=== PATIENT | female | born 1935 | race American Indian/Alaskan Native ===

== ENCOUNTER 2017-09-27 09:33 | Observation (INO) | payer MEDICAID, MEDICARE, OTHER ==
[2017-09-27 09:38] VITALS: BMI 30.1
[2017-09-27 10:28] LABS: EOS % 0.3 % (1.5-5.0); GRAN # 8.39 (1.4-6.5); GRAN % 85.8 % (50.0-68.0); LYMPH # 0.9 (1.2-3.4); LYMPH % 8.9 % (22.0-35.0); MEAN CELL VOLUME 91.5 fl (80.0-105.0); MEAN CORPUSCULAR HEMOGLOBIN 29.8 pg (25.0-35.0); MEAN CORPUSCULAR HGB CONC 32.6 g/dl (31.0-37.0); MEAN PLATELET VOLUME 10.3 fl (7.0-11.0); MONO # 0.5 (0.1-0.6); RBC 4.36 10^6/uL (3.5-6.1); RED CELL DISTRIBUTION WIDTH 15.1 % (11.5-14.5); WHITE BLOOD COUNT 9.8 10^3/ul (4.5-11.0)
--- NOTE | 2017-09-27 10:50 | RAD ---
PROCEDURE: CHEST RADIOGRAPH, 1 VIEW HISTORY: syncope COMPARISON: None available. FINDINGS: LUNGS: Clear. PLEURA: No pneumothorax or pleural fluid seen. CARDIOVASCULAR: Normal. OSSEOUS STRUCTURES: No significant abnormalities. VISUALIZED UPPER ABDOMEN: Normal. OTHER FINDINGS: None. IMPRESSION: No active disease.
--- NOTE | 2017-09-27 10:56 | CT ---
PROCEDURE: CT HEAD WITHOUT CONTRAST. HISTORY: fall, head trauma COMPARISON: None available. TECHNIQUE: Axial computed tomography images were obtained through the head/brain without intravenous contrast. Radiation dose: Total exam DLP = 637 mGy-cm. This CT exam was performed using one or more of the following dose reduction techniques: Automated exposure control, adjustment of the mA and/or kV according to patient size, and/or use of iterative reconstruction technique. FINDINGS: HEMORRHAGE: No intracranial hemorrhage. BRAIN: No mass effect or edema. No atrophy or chronic microvascular ischemic changes. VENTRICLES: Unremarkable. No hydrocephalus. CALVARIUM: Unremarkable. PARANASAL SINUSES: Mucous retention cyst in the sphenoid sinus on the right side MASTOID AIR CELLS: Unremarkable as visualized. No inflammatory changes. OTHER FINDINGS: None. IMPRESSION: No acute intracranial findings
--- NOTE | 2017-09-27 11:18 | ED PDOC ---
Arrival/HPI - General Chief Complaint: Syncope Time Seen by Provider: 09/27/17 09:49 Historian: Patient - History of Present Illness Narrative History of Present Illness (Text): 09/27/17 11:15 82 year old female, with no significant past medical history, who presents to the emergency department s/p trauma. Patient woke up normal, ambulated to the bathroom, urinated, and then fell. Patient's daughter heard a thump and found the patient on the floor vomiting. Patient's daughter notes the patient seemed "out of it' and may have lost consciousness. Patient feels fine now with no recollection of the fall. Patient denies any fever, chills, chest pain, shortness of breath, nausea, vomiting, diarrhea, back pain, neck pain, headache , dizziness. She has no complaints while in ED 09/27/17 12:44 Symptom Onset: Sudden Symptom Course: Unchanged Activities at Onset: Light Context: Home Past Medical History - Provider Review Nursing Documentation Reviewed: Yes - Infectious Disease Hx of Infectious Diseases: None - Reproductive Menopause: Yes - Cardiac Hx Cardiac Disorders: Yes Hx Hypertension: Yes - Pulmonary Hx Respiratory Disorders: No - Neurological Hx Neurological Disorder: No - HEENT Hx HEENT Disorder: No - Renal Hx Renal Disorder: No - Endocrine/Metabolic Hx Endocrine Disorders: Yes Hx Diabetes Mellitus Type 2: Yes - Hematological/Oncological Hx Blood Disorders: Yes Hx Blood Transfusions: Yes - Integumentary Hx Dermatological Disorder: No - Musculoskeletal/Rheumatological Hx Musculoskeletal Disorders: Yes - Gastrointestinal Hx Gastrointestinal Disorders: No - Genitourinary/Gynecological Hx Genitourinary Disorders: No - Psychiatric Hx Psychophysiologic Disorder: No Hx Depression: No Hx Emotional Abuse: No Hx Substance Use: No - Surgical History Hx Cardiac Catheterization: Yes Hx Coronary Stent: Yes Hx Hysterectomy: Yes - Anesthesia Hx Anesthesia Reactions: No Hx Malignant Hyperthermia: No - Suicidal Assessment Feels Threatened In Home Enviroment: No Family/Social History - Physician Review Nursing Documentation Reviewed: Yes Family/Social History: Unknown Family HX Smoking Status: Never Smoked Hx Alcohol Use: No (STOPPED 20 YRS AGO) Hx Substance Use: No Allergies/Home Meds Allergies/Adverse Reactions: Allergies No Known Allergies Allergy (Verified 06/18/15 16:07) Home Medications: Home Meds Medication Instructions Recorded Confirmed Glipizide 10 mg PO QPM 03/11/15 09/27/17 Linagliptin [Tradjenta] 5 mg PO QAM 03/11/15 09/27/17 Valsartan/Hydrochlorothiazide 1 tab PO QAM 03/11/15 09/27/17 [Valsartan-Hctz 160-12.5 mg Tab] Aspirin [Aspirin Chewable] 81 mg PO DAILY 06/18/15 09/27/17 Atorvastatin [Lipitor] 20 mg PO DAILY 06/18/15 09/27/17 Review of Systems - Review of Systems Constitutional: absent: Weight Change, Fevers, Night Sweats Eyes: absent: Vision Changes ENT: absent: Hearing Changes Respiratory: absent: SOB, Cough, Sputum, Wheezing Cardiovascular: absent: Chest Pain, Other Gastrointestinal: absent: Abdominal Pain, Diarrhea, Nausea, Vomiting Genitourinary Female: absent: Dysuria, Frequency, Hematuria, Urine Output Changes Musculoskeletal: absent: Back Pain, Neck Pain Skin: Other (swelling to L forehead) Neurological: Other (?syncope vs fall). absent: Headache, Dizziness, Focal Weakness Psychiatric: absent: Anxiety, Depression Physical Exam Vital Signs Reviewed: Yes Vital Signs Temp Pulse Resp BP Pulse Ox 09/27/17 11:33 87 18 126/66 100 09/27/17 09:33 98.8 F 106 H 15 113/63 98 Temperature: Afebrile Blood Pressure: Normal Pulse: Tachycardic Respiratory Rate: Normal Appearance: Positive for: Well-Appearing, Non-Toxic, Comfortable Pain Distress: None Mental Status: Positive for: Alert and Oriented X 3 Finger Stick Blood Glucose: 168 - Systems Exam Head: Present: Atraumatic, Normocephalic, Swelling (L temporal area swelling) Pupils: Present: PERRL Extroacular Muscles: Present: EOMI Conjunctiva: Present: Normal Mouth: Present: Moist Mucous Membranes Neck: Present: Normal Range of Motion. No: Meningeal Signs, MIDLINE TENDERNESS , Paraspinal Tenderness Respiratory/Chest: Present: Clear to Auscultation, Good Air Exchange. No: Respiratory Distress, Accessory Muscle Use Cardiovascular: Present: Regular Rate and Rhythm, Normal S1, S2. No: Murmurs Abdomen: No: Tenderness, Distention, Peritoneal Signs Back: Present: Normal Inspection. No: CVA Tenderness, Midline Tenderness, Paraspinal Tenderness Upper Extremity: Present: Normal Inspection. No: Cyanosis, Edema Lower Extremity: Present: Normal Inspection. No: Edema, CALF TENDERNESS Neurological: Present: GCS=15, CN II-XII Intact, Speech Normal, Normal Sensory Function, Normal Cerebellar Funct, Gait Normal Skin: Present: Warm, Dry, Normal Color. No: Rashes Psychiatric: Present: Alert, Oriented x 3, Normal Insight, Normal Concentration Medical Decision Making ED Course and Treatment: 09/27/17 11:19 Impression: 82 year old female presents to the emergency department s/p trauma. Likely syncope as patient has no recollection of fall and per family had LOC Plan: -- EKG -- Chest X-ray -- CT Head -- Labs -- Lipase -- Magnesium -- Phosphorous -- Troponin -- Urinalysis -- Reassess and disposition Progress Notes: CT Head reviewed, shows: HEMORRHAGE: No intracranial hemorrhage. BRAIN: No mass effect or edema. No atrophy or chronic microvascular ischemic changes. VENTRICLES: Unremarkable. No hydrocephalus. CALVARIUM: Unremarkable. PARANASAL SINUSES: Mucous retention cyst in the sphenoid sinus on the right side MASTOID AIR CELLS: Unremarkable as visualized. No inflammatory changes. OTHER FINDINGS: None. IMPRESSION: No acute intracranial findings Chest X-ray reviewed, shows: LUNGS: Clear. PLEURA: No pneumothorax or pleural fluid seen. CARDIOVASCULAR: Normal. OSSEOUS STRUCTURES: No significant abnormalities. VISUALIZED UPPER ABDOMEN: Normal. OTHER FINDINGS: None. IMPRESSION: No active disease. 09/27/17 12:35 Chest X-ray reviewed, shows: LUNGS: Clear. PLEURA: No pneumothorax or pleural fluid seen. CARDIOVASCULAR: Normal. OSSEOUS STRUCTURES: No significant abnormalities. VISUALIZED UPPER ABDOMEN: Normal. OTHER FINDINGS: None. IMPRESSION: No active disease. 09/27/17 12:43 Labs reviewed. Trop x 1 negative. EKG shows sinus tachycardia at 104bpm with pacs, RBBB, L anterior fascicular block, LVH, unchanged from prior on 06/2015. Dr. garcia evaluated at bedside. - Lab Interpretations Lab Results: 09/27/17 10:25 09/27/17 11:20 Lab Results 09/27/17 11:20: Sodium 139, Potassium 4.6, Chloride 102, Carbon Dioxide 27, Anion Gap 15, BUN 20, Creatinine 1.1, Est GFR ( Amer) 58, Est GFR (Non- Af Amer) 48, Random Glucose 195 H, Calcium 9.4, Phosphorus 2.8, Magnesium 2.0, Total Bilirubin 0.7, AST 38 H, ALT 23, Alkaline Phosphatase 81, Total Creatine Kinase 70, Troponin I < 0.01, Total Protein 7.7, Albumin 4.1, Globulin 3.6, Albumin/Globulin Ratio 1.2, Lipase 58 09/27/17 10:25: WBC 9.8, RBC 4.36, Hgb 13.0, Hct 39.9, MCV 91.5, MCH 29.8, MCHC 32.6, RDW 15.1 H, Plt Count 195, MPV 10.3, Gran % 85.8 H, Lymph % (Auto) 8.9 L, [place] % (Auto) 5.0, Eos % (Auto) 0.3 L, Baso % (Auto) 0.0, Gran # 8.39 H, Lymph # (Auto) 0.9 L, [place] # (Auto) 0.5, Eos # (Auto) 0.0, Baso # (Auto) 0.00 - RAD Interpretation Radiology Orders: 09/27/17 09:53 HEAD W/O CONTRAST [CT] Stat 09/27/17 09:56 CHEST ONE VIEW [RAD] Stat - Scribe Statement The provider has reviewed the documentation as recorded by the Scribe Madison Villar All medical record entries made by the Scribe were at my direction and personally dictated by me. I have reviewed the chart and agree that the record accurately reflects my personal performance of the history, physical exam, medical decision making, and the department course for this patient. I have also personally directed, reviewed, and agree with the discharge instructions and disposition. Disposition/Present on Arrival - Present on Arrival Any Indicators Present on Arrival: No History of DVT/PE: No History of Uncontrolled Diabetes: No Urinary Catheter: No History of Decub. Ulcer: No History Surgical Site Infection Following: None - Disposition Have Diagnosis and Disposition been Completed?: Yes Diagnosis: Syncope Disposition: HOSPITALIZED Disposition Time: 10:15 Patient Plan: Observation Condition: FAIR
[2017-09-27 11:35] LABS: ALB/GLOB RATIO 1.2 (1.1-1.8); ALBUMIN 4.1 g/dL (3.0-4.8); ALT/SGPT 23 U/L (7-56); AST/SGOT 38 U/L (14-36); BLOOD UREA NITROGEN 20 mg/dL (7-21); CALCIUM 9.4 mg/dL (8.4-10.5); GFR AFRICAN-AMERICAN 58; GFR NON-AFRICAN AMERICAN 48; LIPASE 58 U/L (23-300)
[2017-09-27 11:46] LABS: TROPONIN I < 0.01 ng/mL
[2017-09-27 13:30] LABS: URINE BILIRUBIN NEGATIVE (NEGATIVE); URINE BLOOD NEGATIVE (NEGATIVE); URINE GLUCOSE (UA) NEGATIVE (NEGATIVE); URINE LEUKOCYTE ESTERASE NEGATIVE Leu/uL (NEGATIVE); URINE PROTEIN NEGATIVE mg/dL (<30 mg/dL); URINE UROBILINOGEN 0.2 E.U./dL (<1 E.U./dL)
[2017-09-27 13:31] LABS: URINE APPEARANCE CLEAR (CLEAR); URINE COLOR YELLOW (YELLOW)
--- NOTE | 2017-09-27 14:23 | CARD ---
APPROVED REPORT EKG Measurement Heart [id number] <Conclusion> Sinus tachycardia with premature atrial complexes Right bundle branch block Left anterior fascicular block Bifascicular block Voltage criteria for left ventricular hypertrophy Abnormal ECG
[2017-09-27] MEDS ORDERED: Sodium Chloride 0.45% 1,000 ML IV SCH (19:00)
--- NOTE | 2017-09-27 20:10 | US ---
PROCEDURE: Bilateral carotid artery duplex ultrasound HISTORY: Carotid stenosis TIA PHYSICIAN(S): Roderick Chambers MD. TECHNIQUE: Duplex sonography and color-flow Doppler were used to evaluate the carotid bifurcations and limited segments of the vertebral arteries bilaterally. FINDINGS: There is mild smooth diffuse plaque noted at the carotid bifurcations bilaterally. The peak systolic velocity in the proximal right internal carotid artery is 70 cm/sec. This corresponds to a 20 to 39% proximal right ICA stenosis. Normal systolic velocities are noted in the proximal right external carotid artery. There is antegrade flow in the dominant right vertebral artery. The peak systolic velocity in the proximal left internal carotid artery is 88 cm/sec. This corresponds to a 20 to 39% proximal left ICA stenosis. Normal systolic velocities are noted in the proximal left external carotid artery. There is antegrade flow in the small left vertebral artery. IMPRESSION: 1. Bilateral 20-39% proximal ICA stenoses. 2. Antegrade flow in both vertebral arteries.
[2017-09-27] MEDS: Insulin Reg-MEDIUM-Coverage SC SCH (21:56)
--- NOTE | 2017-09-27 23:57 | CP.PCM.PN ---
Subjective - Date & Time of Evaluation Date of Evaluation: 09/27/17 Time of Evaluation: 22:50 - Subjective Subjective: Pt seen at the request of her RN for her c/o heartburn since early this AM. She states that she had a heartburn followed by vomiting earlier today.The vomiting is controlled by Zofran,however she still continues to have the heartburn intermittently.She also feels a sour taste in her mouth and is belching at times. Denies c/o SOB,chest pain,pain in her back,neck or arms.No c/o calf pain. VS are stable. PMH: CAD,has one stent,DM. Objective - Vital Signs/Intake and Output Vital Signs (last 24 hours): Temp Pulse Resp BP Pulse Ox 99.8 F H 106 H 18 134/82 96 09/27/17 21:00 09/27/17 21:00 09/27/17 21:00 09/27/17 21:00 09/27/17 18:07 - Medications Medications: Current Medications Aspirin (Aspirin Chewable) 81 mg PO DAILY [facility] Atorvastatin Calcium (Lipitor) 20 mg PO DIN SHAYY Glipizide (Glucotrol) 10 mg PO QPM [facility] Hydrochlorothiazide (Microzide) 12.5 mg PO DAILY [facility] Sodium Chloride (Sodium Chloride 0.45%) 1,000 mls @ 40 mls/hr IV .Q24H [facility] Last Admin: 09/27/17 20:35 Dose: 40 mls/hr Insulin Human Regular (Humulin R Med) 0 units SC ACHS SHAYY PRN Reason: Protocol Last Admin: 09/27/17 21:56 Dose: Not Given Losartan Potassium (Cozaar) 100 mg PO DAILY [facility] Metoprolol Succinate (Toprol Xl) 25 mg PO DAILY [facility] Non-Formulary Medication (Linagliptin [Tradjenta]) 5 mg PO QAM [facility] Ondansetron HCl (Zofran Inj) 4 mg IVP Q6H PRN PRN Reason: Nausea/Vomiting - Constitutional Appears: No Acute Distress - Head Exam Head Exam: ATRAUMATIC, NORMAL INSPECTION, NORMOCEPHALIC - Eye Exam Eye Exam: PERRL - ENT Exam ENT Exam: Mucous Membranes Moist - Neck Exam Neck Exam: Full ROM, Normal Inspection - Respiratory Exam Respiratory Exam: Clear to Ausculation Bilateral - Cardiovascular Exam Cardiovascular Exam: REGULAR RHYTHM, +S1, +S2. absent: JVD - GI/Abdominal Exam GI & Abdominal Exam: Soft, Normal Bowel Sounds. absent: Tenderness - Extremities Exam Extremities Exam: Normal Inspection. absent: Calf Tenderness, Pedal Edema - Neurological Exam Neurological Exam: Alert, Awake, Oriented x3 Additional comments: moves all 4 extremities - Psychiatric Exam Psychiatric exam: Normal Affect - Skin Skin Exam: Dry, Warm Assessment and Plan - Assessment and Plan (Free Text) Assessment: Heartburn Plan: Ekg was done and compared with prior EKG from this AM.It shows NSR,RBBB,LAHB,LVH (same findings as before). Troponin 1 ordered stat,then in AM. Protonix ordered stat,then daily. Suggest GI consult.
--- NOTE | 2017-09-28 02:49 | HP ---
HISTORY OF PRESENT ILLNESS: I was called down to the emergency room to see Maricruz. She is not doing well. She is an 82-year-old -[place] female with a past medical history of woke up normal, ambulated to the bathroom, urinated and fell. The daughter heard the thump. Found her on the floor, vomiting. Seemed out of it. May have loss of consciousness. Feels fine now in the emergency room, doing better. PAST MEDICAL HISTORY: She has a history of hypertension, menopause, diabetes. She has had blood transfusions in the past, arthritis, coronary stents, hysterectomy, CAD. FAMILY HISTORY: Unknown family history. SOCIAL HISTORY: Never smoked. Quit alcohol 20 years ago. No substance abuse. ALLERGIES: NO KNOWN DRUG ALLERGIES. MEDICATIONS: She is on glipizide, Tradjenta, valsartan, hydrochlorothiazide, chewable aspirin and Lipitor. REVIEW OF SYSTEMS: No weight change. No fever. No night sweats. No vision changes. No hearing changes. No shortness of breath, cough, sputum or wheezing. No chest pain. No palpitations. She had little bit of nauseous for a little while and threw up one, but no abdominal pain, no diarrhea or discomfort. No problems urinating. No back pain or neck pain. There is some swelling to the left forehead from where she fell. She had a syncopal episode and fall. No headache or dizziness at this time. No focal weakness. No anxiety or depression. PHYSICAL EXAMINATION: VITAL SIGNS: She has 98.8 temp, 106 pulse, 15 respiratory rate, 113/63 blood pressure, 98% O2 sat on room air. GENERAL: She is well appearing, nontoxic, comfortable right now in the ER. She is alert and oriented x3. Blood sugar was 168. HEENT: Head is traumatic with a left temporal area swelling with normocephalic. Extraocular muscles are intact. Pupils equal, reactive to light. Throat is moist. Tongue midline. NECK: Good range of motion. HEART: Regular rate. Normal S1 and S2. LUNGS: Clear to auscultation with fair air exchange. No wheezes, rhonchi or rales. ABDOMEN: Soft, nontender. Positive bowel sounds. No guarding. No rebound. No CVA tenderness. EXTREMITIES: Have no edema. She can move all 4 extremities. SKIN: For the most part is intact. No apparent rashes or ulcers. NEUROLOGIC: GCS is 15. Cranial nerves II through XII grossly intact. Speech is normal. She feels back to normal. Alert and oriented x3. LYMPHATICS: Thyroid midline. No palpable appreciable lymphadenopathy. LABORATORY DATA: She had a bunch of tests done. Head CT was okay. Chest x-ray was okay. She had labs. Urine was clean. 139 sodium, potassium 4.6, BUN 20, creatinine 1.1, GFR is 48, sugar is 195, calcium is 9.4, phosphorous 2.8, magnesium 2, total bili is 0.7, AST is 38, ALT is 23, alk phos is 81, Troponin I is less than 0.01, total protein 7.7, albumin is 4.1. White count is 9.8, hemoglobin 13, hematocrit 39.9, platelets of 195. IMPRESSION: She will be put back on her regular medications. She will be on an insulin coverage. She will be on some IV fluids. We are checking carotid Dopplers, echo, EEG, diet. She will have consults with Cardiology and Pulmonary. She will have labs tomorrow morning. She will be here on observation for a syncopal episode with head trauma. Erasto Keys DO MTDD
--- NOTE | 2017-09-28 06:03 | CON ---
DATE: HISTORY OF PRESENT ILLNESS: This is an 82-year-old female with no significant past medical history, came to the emergency room because patient fell in the bathroom and daughter heard the thump and found her on the floor, and she was vomiting also; brought to the emergency room, not sure whether lost consciousness or not, and no tongue bite. ALLERGIES: NO KNOWN DRUG ALLERGY. SOCIAL HISTORY: Does not smoke. Does not drink. PHYSICAL EXAMINATION: VITAL SIGNS: Blood pressure 130/63. HEENT: Normocephalic and atraumatic. NECK: Supple. NEUROLOGIC: Left facial trauma was noted, and pupils reactive. EOM intact. Visual werner full. No facial asymmetry. Tongue midline. Motor: Moves all the extremities equally. Tone normal. Deep tendon reflexes 1+. Both plantars are downgoing. Sensory appears intact. Cerebellar, gait deferred. IMPRESSION: Syncope, less likely seizure. CAT scan of the head was done, which was normal, and workup in progress. We will do EEG and followup of the results. Salinas Walker MD
[2017-09-28 06:22] VITALS: O2SAT 98
[2017-09-28 07:15] LABS: MEAN CELL VOLUME 91.5 fl (80.0-105.0); MEAN CORPUSCULAR HEMOGLOBIN 29.2 pg (25.0-35.0); MEAN CORPUSCULAR HGB CONC 31.9 g/dl (31.0-37.0); MEAN PLATELET VOLUME 10.6 fl (7.0-11.0); RBC 4.11 10^6/uL (3.5-6.1); RED CELL DISTRIBUTION WIDTH 15.3 % (11.5-14.5); WHITE BLOOD COUNT 6.6 10^3/ul (4.5-11.0)
[2017-09-28 07:30] LABS: TROPONIN I < 0.01 ng/mL
[2017-09-28 07:44] LABS: ALBUMIN 3.6 g/dL (3.0-4.8); ALT/SGPT 30 U/L (7-56); AST/SGOT 33 U/L (14-36); BLOOD UREA NITROGEN 17 mg/dL (7-21); CALCIUM 8.3 mg/dL (8.4-10.5); GFR AFRICAN-AMERICAN > 60; GFR NON-AFRICAN AMERICAN 53
[2017-09-28] MEDS: Insulin Reg-MEDIUM-Coverage SC SCH ×3 (08:30→16:51)
[2017-09-28] MEDS ORDERED: Metoprolol Succinate 25 mg XL Tab PO SCH (10:00)
--- NOTE | 2017-09-28 15:46 | CARD ---
APPROVED REPORT EXAM: Two-dimensional and M-mode echocardiogram with Doppler and color Doppler. INDICATION Syncope 2D DIMENSIONS Left Atrium (2D)3.3 (1.6-4.0cm)IVSd1.2 (0.7-1.1cm) LVDd3.7 (3.9-5.9cm)PWd1.3 (0.7-1.1cm) LVDs2.4 (2.5-4.0cm)FS (%) 35.1 % LVEF (%)65.2 (>50%) M-Mode DIMENSIONS Aortic Root2.90 (2.2-3.7cm)Aortic Cusp Exc.1.70 (1.5-2.0cm) Aortic Valve AoV Peak Wfdndekh660.0cm/Hemanth Peak GR.7mmHg Mitral Valve MV E Lmwndjnz50.8cm/sMV A Zlczdzbe74.1cm/sE/A ratio0.8 TDI E/Lateral E'0.0E/Medial E'0.0 Tricuspid Valve TR Peak [id number]/sRAP [id number] Peak Gr.20mmHg [id number] LEFT VENTRICLE The left ventricle is normal size. There is normal left ventricular wall thickness. The left ventricular function is normal. The left ventricular ejection fraction is within the normal range. There is normal LV segmental wall motion. Transmitral Doppler flow pattern is Grade I-abnormal relaxation pattern. RIGHT VENTRICLE The right ventricle is normal size. There is normal right ventricular wall thickness. The right ventricular systolic function is normal. ATRIA The left atrium size is normal. The right atrium size is normal. AORTIC VALVE The aortic valve is not well visualized. No aortic regurgitation is present. There is no aortic valvular stenosis. MITRAL VALVE The mitral valve is normal in structure. There is no mitral valve regurgitation noted. TRICUSPID VALVE There is trace tricuspid regurgitation. GREAT VESSELS The aortic root is normal in size. PERICARDIAL EFFUSION There is no pericardial effusion. <Conclusion> The left ventricle is normal size. There is normal left ventricular wall thickness. The left ventricular function is normal. The left ventricular ejection fraction is within the normal range. There is normal LV segmental wall motion. Transmitral Doppler flow pattern is Grade I-abnormal relaxation pattern.
--- NOTE | 2017-09-28 16:52 | CARD ---
APPROVED REPORT EKG Measurement Heart [id number] <Conclusion> Normal sinus rhythm Right bundle branch block Left anterior fascicular block Bifascicular block Voltage criteria for left ventricular hypertrophy Abnormal ECG
[2017-09-28 19:05] VITALS: BP 130/80; PULSE 80; RESP 20; TEMP 98.2
--- NOTE | 2017-09-29 06:54 | DS ---
SUMMARY: I saw her resting comfortably in bed. She is doing better. The daughter is at bedside. She is still a little when she walks. I am not sure if she needs physical therapy or what, but she is on IV fluids, aspirin, Cozaar, Glucotrol, Tradjenta, Lipitor, Microzide, Protonix, Toprol, Tylenol, and Zofran. The Protonix really helped her, was given to her by the house doctor last night for heartburn, and now all the symptoms seemed to go away. This also could have been heartburn. PHYSICAL EXAMINATION: VITAL SIGNS: She has a 98.7 temperature, 85 pulse, 122/70 blood pressure, 20 respiratory rate, 90% O2 sat on room air. HEENT: Head: Atraumatic, normocephalic. HEART: Regular rate with decreased breath sounds, but clear. ABDOMEN: Soft, nontender. Positive bowel sounds. EXTREMITIES: No edema. GENERAL: The patient tells me she is back to normal. She feels well. LABORATORY DATA: She has a 6.6 white count, 12 hemoglobin, 37.6 hematocrit with 183 platelets. She has a 140 sodium, potassium 3.8, BUN 17, creatinine 1, GFR is 53, sugar is 137, calcium is 8.3. Total bili is 0.6, AST is 33, ALT is 30, alk phos is 65. All three troponins were less than 0.01. Total protein 7.3. Urine was clear. REPORT: The carotids were okay. CAT scan of the head was okay. Chest x-ray was okay. Neurology is going to do an EEG just to make sure it is not a seizure. for Cardio to see her. I am hoping that if Cardio and Neuro say she can go, we can discharge her this afternoon home. Also, waiting for physical therapy to tell me that she is safe to walk also; they have not seen her yet. So, may be this afternoon, we will be able to discharge her. I discussed this with the daughter she is doing that much better and she is walking well and she is eating well. We will discharge her home; leave on observation. She was here for chest pain, was atypical, probably reflux. Waiting for Cardio to see her. Erasto Keys DO KILO
== END 2017-09-28 19:45 | disposition home or self-care (01) ==
LOC: ED 09:33 → ERH 11:37 → 2RSO 18:01
PROVIDERS: ADMIT Family Medicine; ATTEND Family Medicine
DX: R55 Syncope and collapse (principal); S09.90XA Unspecified injury of head, initial encounter; I10 Essential (primary) hypertension; E11.9 Type 2 diabetes mellitus without complications; I25.10 Atherosclerotic heart disease of native coronary artery without angina pectoris; R12 Heartburn; M19.90 Unspecified osteoarthritis, unspecified site; W19.XXXA Unspecified fall, initial encounter; Y92.009 Unspecified place in unspecified non-institutional (private) residence as the place of occurrence of the external cause; Z95.5 Presence of coronary angioplasty implant and graft; Z90.710 Acquired absence of both cervix and uterus
CPT/HCPCS: 36415; 70450; 71045; 80053; 81003; 82550; 82948; 83690; 83735; 84100; 84484; 85025; 85027; 93005; 93306; 93880; 95812; 97116; 97161; 97530; 99285; C9113; G0378; G8978; G8979; J7030

== ENCOUNTER 2018-08-13 12:19 | Emergency (ER) | payer MEDICARE, OTHER ==
[2018-08-13 12:25] VITALS: BMI 26.6
[2018-08-13 12:29] VITALS: O2SAT 98
[2018-08-13 13:04] LABS: BASO # 0.02 K/mm3 (0.0-2.0); BASO % 0.2 % (0.0-3.0); EOS # 0.1 (0.0-0.7); EOS % 1.3 % (1.5-5.0); HEMOGLOBIN 11.9 g/dL (12.0-16.0); LYMPH # 2.3 (1.2-3.4); LYMPH % 23.6 % (22.0-35.0); MEAN CELL VOLUME 92.4 fl (80.0-105.0); MEAN CORPUSCULAR HEMOGLOBIN 29.3 pg (25.0-35.0); MEAN CORPUSCULAR HGB CONC 31.7 g/dl (31.0-37.0); MEAN PLATELET VOLUME 10.5 fl (7.0-11.0); MONO # 1.2 (0.1-0.6); MONO % 11.6 % (1.0-6.0); RBC 4.06 10^6/uL (3.5-6.1); RED CELL DISTRIBUTION WIDTH 14.9 % (11.5-14.5); WHITE BLOOD COUNT 9.9 10^3/uL (4.5-11.0)
--- NOTE | 2018-08-13 13:06 | ED PDOC ---
Arrival/HPI - General Chief Complaint: Cough, Cold, Congestion Time Seen by Provider: 08/13/18 12:34 Historian: Patient, Family (daughter) - History of Present Illness Narrative History of Present Illness (Text): 08/13/18 13:08 A 83 year old female, whose past medical history includes diabetes and hypertension, who is accompanied by her daughter, presents to the emergency department complaining of productive cough for 5 days. Patient's daughter reports patient went to see her PMD and was prescribed an antibiotic yesterday. Also, daughter mentions patient complaining of hyperglycemia, stating patient's blood sugar was at 171 at home and temperature of 100.7 this morning. Patient did not take any medication for slightly elevated temp. Patient denies chest pain, sob, n,v, abdominal pain. PMD: Dr. Jenny Shea Time/Duration: < week (5 days) Past Medical History - Provider Review Nursing Documentation Reviewed: Yes - Infectious Disease Hx of Infectious Diseases: None - Reproductive Menopause: Yes - Cardiac Hx Hypertension: Yes - Pulmonary Hx Respiratory Disorders: No - Neurological Hx Neurological Disorder: No - HEENT Hx HEENT Disorder: Yes (wears glasses) Hx Cataracts: Yes (bilateral with surgery) - Renal Hx Renal Disorder: No - Endocrine/Metabolic Hx Diabetes Mellitus Type 2: Yes - Hematological/Oncological Hx Blood Disorders: No - Integumentary Hx Dermatological Disorder: No - Musculoskeletal/Rheumatological Hx Falls: Yes - Gastrointestinal Hx Gastrointestinal Disorders: Yes Hx Gastroesophageal Reflux: Yes - Genitourinary/Gynecological Hx Genitourinary Disorders: No - Psychiatric Hx Psychophysiologic Disorder: No Hx Depression: No Hx Emotional Abuse: No Hx Substance Use: No - Surgical History Hx Cardiac Catheterization: Yes Hx Coronary Stent: Yes (x1) Hx Hysterectomy: Yes - Anesthesia Hx Anesthesia Reactions: No Hx Malignant Hyperthermia: No - Suicidal Assessment Feels Threatened In Home Enviroment: No Family/Social History - Physician Review Nursing Documentation Reviewed: Yes Family/Social History: No Known Family HX Smoking Status: Never Smoked Hx Alcohol Use: No Hx Substance Use: No Allergies/Home Meds Allergies/Adverse Reactions: Allergies No Known Allergies Allergy (Verified 06/18/15 16:07) Home Medications: Home Meds Medication Instructions Recorded Confirmed Glipizide 10 mg PO QPM 03/11/15 10/31/17 Linagliptin [Tradjenta] 5 mg PO QAM 03/11/15 10/31/17 Valsartan/Hydrochlorothiazide 1 tab PO QAM 03/11/15 10/31/17 [Valsartan-Hctz 160-12.5 mg Tab] Aspirin [Aspirin Chewable] 81 mg PO DAILY 06/18/15 10/31/17 Atorvastatin [Lipitor] 20 mg PO DAILY 06/18/15 10/31/17 Review of Systems - Physician Review All systems were reviewed & negative as marked: Yes - Review of Systems Constitutional: Night Sweats (chills). absent: Fevers Respiratory: Cough (productive) Cardiovascular: absent: Chest Pain Gastrointestinal: absent: Abdominal Pain, Nausea, Vomiting Physical Exam - Physical Exam Narrative Physical Exam (Text): Gen: NAD, cooperative, well appearing, non-toxic. Head: NCAT. HEENT: EYES: PERRL, EOMI, conjunctiva clear, EARS: TMs clear MOUTH: moist MM, posterior pharynx without erythema or exudate, uvula midline. CV: (+) S1S2, RRR, no M/G/R LUNGS: CTA B/L, No W/R, diffuse rhonchi, decreased breath sounds, good air movement Abd: Soft, NTTP, no guarding, rebound or rigidity. Neuro: AAO x 3, GCS 15, CN 2-12 intact, motor and sensory grossly intact, 5/5 muscle strength B/L UE's and LE's. ext: no cyanosis or edema Vital Signs Reviewed: Yes Vital Signs Temp Pulse Resp BP Pulse Ox 08/13/18 12:20 99 F 108 H 20 142/89 98 Temperature: Afebrile Blood Pressure: Normal Pulse: Regular Respiratory Rate: Normal Appearance: Positive for: Well-Appearing, Non-Toxic, Comfortable Pain Distress: None Mental Status: Positive for: Alert and Oriented X 3 Finger Stick Blood Glucose: 324 Medical Decision Making ED Course and Treatment: 08/13/18 13:09 Impression: 83 year old female with productive cough and hyperglycemia. Plan: -- Chest X-ray -- Labs -- Blood Culture -- IV Fluids -- Venous Blood Gas -- Reassess and disposition Progress Notes: 08/13/18 14:00 Chest X-ray IMPRESSION: Slightly increased and coarsened interstitial markings; rule out sequela of reactive/inflammatory airway disease or viral illness. Dictator: Dr. Ab Morfin 08/13/18 14:15 Results discussed with patient and patient's family. Patient has been instructed to continuing taking antibiotics. Patient to be discharged home. 08/13/18 15:56 Patient reassessed after Albuterol neb. Repeat POC glucose is 198. Lungs sounds have improved and patient states she feels much better. Plan d/c home, Rx for Albuterol inhaler and Tessalon Perles and f/u w/pcp in 1-2 days. Patient is agreeable w/POC and was given the opportunity to ask questions. - Scribe Statement The provider has reviewed the documentation as recorded by the Mikeibarmin Bowers Provider Scribe Attestation: All medical record entries made by the Scribe were at my direction and personally dictated by me. I have reviewed the chart and agree that the record accurately reflects my personal performance of the history, physical exam, medical decision making, and the department course for this patient. I have also personally directed, reviewed, and agree with the discharge instructions and disposition. Disposition/Present on Arrival - Present on Arrival Any Indicators Present on Arrival: Yes History of DVT/PE: No History of Uncontrolled Diabetes: Yes Urinary Catheter: No History of Decub. Ulcer: No History Surgical Site Infection Following: None - Disposition Have Diagnosis and Disposition been Completed?: Yes Diagnosis: URI (upper respiratory infection), Hyperglycemia Disposition: HOME/ ROUTINE Disposition Time: 15:59 Patient Plan: Discharge Condition: IMPROVED Discharge Instructions (ExitCare): Viral Upper Respiratory Infection, Adult (DC) Additional Instructions: XIOMY GRAYSON, thank you for letting us take care of you today. Your provider was Mey Otero MD and you were treated for ELEVATED SUGAR/COUGH/FEVER. The emergency medical care you received today was directed at your acute symptoms. Take your medication as directed. It may take several days for your symptoms to resolve. Return to the Emergency Department if your symptoms worsen, do not improve, or if you have any other problems. Please contact your doctor for a follow up appointment in 1-2 days. Bring any paperwork you were given at discharge with you along with any medications you are taking to your follow up visit. Our treatment cannot replace ongoing medical care by a primary care provider outside of the emergency department. Thank you for allowing the [facility] team to be part of your care today. Prescriptions: Albuterol HFA [Ventolin HFA 90 mcg/actuation (8 g)] 2 puff IH [id number] PRN #1 unit PRN Reason: Wheezing Benzonatate [Tessalon Perles] 100 mg PO TID #30 cap Referrals: Philip Shea MD [Primary Care Provider] - Follow up with primary Forms: [facility] (Hungarian)
[2018-08-13 13:09] LABS: VENOUS BLOOD GAS BASE EXCESS 2.8 mmol/L (0.0-2.0); VENOUS BLOOD GAS PO2 116 mm/Hg (30-55); VENOUS BLOOD PH 7.44 (7.32-7.43)
[2018-08-13 13:15] LABS: ALBUMIN 3.7 g/dL (3.0-4.8); ALT/SGPT 16 U/L (7-56); AST/SGOT 34 U/L (14-36); BLOOD UREA NITROGEN 14 mg/dL (7-21); CALCIUM 8.9 mg/dL (8.4-10.5); GFR NON-AFRICAN AMERICAN 53
[2018-08-13] MEDS ORDERED: Sodium Chloride 0.9% 1,000 ML IV SCH (13:15)
--- NOTE | 2018-08-13 15:08 | RAD ---
Date of service: 08/13/2018 HISTORY: Fever and cough COMPARISON: Comparison chest dated 09/27/2017 TECHNIQUE: Chest PA and lateral views FINDINGS: LUNGS: Slightly increased and coarsened interstitial markings; rule out sequela of reactive/inflammatory airway disease or viral illness. PLEURA: No significant pleural effusion identified. No pneumothorax apparent. CARDIOVASCULAR: No aortic atherosclerotic calcification present. . Heart size upper limits of normal.. No pulmonary vascular congestion. OSSEOUS STRUCTURES: No significant abnormalities. VISUALIZED UPPER ABDOMEN: Normal. OTHER FINDINGS: None. IMPRESSION: Slightly increased and coarsened interstitial markings; rule out sequela of reactive/inflammatory airway disease or viral illness.
[2018-08-13] MEDS ORDERED: Albuterol 0.083% Inhal Sol (2.5 mg/3 mL) UD INH STA (15:10)
[2018-08-13 16:20] VITALS: BP 139/58; PULSE 82; RESP 18; TEMP 98
== END 2018-08-13 16:21 | disposition home or self-care (01) ==
LOC: ED 12:19
DX: J06.9 Acute upper respiratory infection, unspecified (principal); I10 Essential (primary) hypertension; E11.65 Type 2 diabetes mellitus with hyperglycemia; Z95.5 Presence of coronary angioplasty implant and graft
CPT/HCPCS: 71046; 80053; 82803; 82948; 83735; 85025; 87040; 99283; J7030